=== PATIENT | male | born 1950 | race Caucasian/White ===

== ENCOUNTER 2017-01-20 20:36 | Emergency (ER) | payer BC ==
[2017-01-20] MEDS ORDERED: KETOROLAC 30 MG/ML VIAL IVP ONE (20:47)
[2017-01-20] MEDS ORDERED: ONDANSETRON HCL IV 4 MG/2 ML VIAL IV ONE (20:47)
[2017-01-20] MEDS ORDERED: 0.9 % SODIUM CHLORIDE 1,000 ML BAG IV ONE (20:47)
[2017-01-20 20:48] LABS: URINE APPEARANCE CLEAR; URINE BILIRUBIN NEGATIVE (NEGATIVE); URINE BLOOD TRACE-I (NEGATIVE); URINE COLOR YELLOW; URINE GLUCOSE (UA) NEGATIVE (NEGATIVE); URINE KETONE NEGATIVE (NEGATIVE); URINE LEUKOCYTE ESTERASE NEGATIVE (NEGATIVE); URINE NITRITE NEGATIVE (NEGATIVE); URINE PROTEIN NEGATIVE (NEGATIVE); URINE UROBILINOGEN 0.2 E.U./dL (0.20 - 1.00)
--- NOTE | 2017-01-20 20:49 | Emergency Department Record ---
History of Present Illness - General Chief complaint: Flank Pain Stated complaint: left back pain Time Seen by Provider: 01/20/17 20:46 - Related Data Home Medications Medication Instructions Recorded Confirmed Last Taken Triamterene/Hydrochlorothiazid 1 tab PO DAILY 07/18/14 01/20/17 Unknown [Triamterene-Hctz 37.5-25 mg Cp] Enalapril Maleate [Enalapril 20 mg PO DAILY 01/20/17 01/20/17 Unknown Maleate] Previous Rx's Medication Instructions Recorded Tamsulosin HCl [Flomax] 0.4 mg PO DAILY #7 cap.er.24h 07/18/14 Hydrocodone/Acetaminophen [[place] 1 each PO Q6HR #20 tablet 01/20/17 5-325 Tablet] Allergies Allergy/AdvReac Type Severity Reaction Status Date / Time No Known Drug Allergies Allergy Verified 07/18/14 17:53 Past Medical History - SOCIAL HISTORY Smoking Status: Never smoker - RESPIRATORY Hx Respiratory Disorders: No - CARDIOVASCULAR Hx Cardio Disorders: No - NEURO Hx Neuro Disorders: No - GI Hx GI Disorders: No - Hx Genitourinary Disorders: Yes Hx Kidney Stones: Yes - ENDOCRINE Hx Endocrine Disorders: No - MUSCULOSKELETAL Hx Musculoskeletal Disorders: No - PSYCH Hx Psych Problems: No - HEMATOLOGY/ONCOLOGY Hx Hematology/Oncology Disorders: No Physical Exam - General General Appearance: Alert, Oriented x3, Cooperative, No acute distress - Head Head exam: Normal inspection - Eye Eye exam: Normal appearance, PERRL Pupils: Normal accommodation - ENT ENT exam: Normal exam, Mucous membranes moist, Normal external ear exam, Normal orophraynx, TM's normal bilaterally Ear exam: Normal external inspection. negative: External canal tenderness Nasal Exam: Normal inspection. negative: Discharge, Sinus tenderness Mouth exam: Normal external inspection, Tongue normal Teeth exam: Normal inspection. negative: Dental caries Throat exam: Normal inspection. negative: Tonsillar erythema, Tonsillar exudate - Neck Neck exam: Normal inspection, Full ROM. negative: Tenderness - Respiratory Respiratory exam: Normal lung sounds bilaterally. negative: Respiratory distress - Cardiovascular Cardiovascular Exam: Regular rate, Normal rhythm, Normal heart sounds - GI/Abdominal GI/Abdominal exam: Soft, Normal bowel sounds. negative: Tenderness - Rectal Rectal exam: Deferred - exam: Deferred - Extremities Extremities exam: Normal inspection, Full ROM, Normal capillary refill. negative: Tenderness - Back Back exam: Reports: Normal inspection, CVA tenderness (L), Full ROM. Denies: Muscle spasm, Rash noted, Tenderness - Neurological Neurological exam: Alert, Normal gait, Oriented X3, Reflexes normal - Psychiatric Psychiatric exam: Normal affect, Normal mood - Skin Skin exam: Dry, Intact, Normal color, Warm Course - Reevaluation(s) Reevaluation #1: Patient's nausea is resolved, and his pain is "way down" from when he came in. He states he has seen Dr. South urology but he may have retired. He is asking for 3 days off his work shifts. 01/20/17 21:30 Reevaluation #2: Patient takes flomax daily and has already taken his for today. 01/20/17 21:39 Medical Decision Making - Management Options MDM Management: Additional Work-up Planned (e.g. ADM/Transfer/OP Study) ( urology follow up in office.) - Data Complexity MDM Data: Labs Ordered and/or Reviewed, X-Ray Ordered and/or Reviewed (3.7 mm left ureteral stone 2 cm above UVJ causing mild hydronephrosis per radiologist.) - Lab Data Result diagrams: 01/20/17 20:45 01/20/17 20:45 Disposition Disposition: Discharge Clinical Impression: Kidney stone on left side Disposition: Home, Self-Care Condition: (2) Stable Instructions: Flank Pain (ED), Kidney Stones (ED), How to Strain Your Urine (ED ) Additional Instructions: Flomax once daily as previously directed. [place] as directed if needed for pain. May cause drowsiness. [facility] consult Dr Sanchez as instructed. strain all urine. Off work 01-20 through 01-22-17. Prescriptions: Hydrocodone/Acetaminophen [[place] 5-325 Tablet] 1 each PO Q6HR #20 tablet Referrals: MINDA SANCHEZ M.D. [MEDICAL DOCTOR] -
[2017-01-20 21:01] LABS: URINE MUCUS LIGHT; URINE WBC 0 - 2 (0-2/hpf)
[2017-01-20 21:10] LABS: BASO % 0.4 % (0-6); EOS % 1.8 % (0-6); HEMATOCRIT 45.2 % (42.0-52.0); HEMOGLOBIN 15.7 gm/dl (14.0-18.0); LYMPH % 24.2 % (16-45); MEAN CELL VOLUME 90.6 fl (81-97); MEAN CORPUSCULAR HEMOGLOBIN 31.5 pg (27-33); MEAN CORPUSCULAR HGB CONC 34.7 g/dl (32-36); MEAN PLATELET VOLUME 10.9 fl (7.4-10.4); MONO % 8.6 % (0-9); PLATELET COUNT 215 K/uL (130-400); RED BLOOD COUNT 4.99 M/uL (4.40-5.70); RED CELL DISTRIBUTION WIDTH 13.8 % (11.5-14.5); WHITE BLOOD COUNT W/O DIFF 8.5 K/uL (4.2-12.2)
[2017-01-20 21:15] LABS: ANION GAP 11.5 (7-16); BLOOD UREA NITROGEN 26 mg/dL (9-20); CARBON DIOXIDE 23.5 mmol/L (22-30); CREATININE 1.2 mg/dL (0.66-1.25); EST GLOMERULAR FILTRATION RATE > 60 ml/min; GLUCOSE,RANDOM 123 mg/dL (70-110); LIPASE 24 U/L (23-300)
[2017-01-20] MEDS ORDERED: TAMSULOSIN HCL 0.4 MG CAP.ER.24H PO ONE (21:31)
[2017-01-20] MEDS ORDERED: HYDROCODONE/APAP 5/325MG TABLET PO ONE (21:31)
--- NOTE | 2017-01-22 14:34 | CT SCAN REPORT ---
EXAM: CT SCAN ABDOMEN/PELVIS WO CONTRAST HISTORY: LEFT FLANK PAIN. TECHNIQUE: CT of the abdomen and pelvis is performed without intravenous or oral contrast. COMPARISON: 07/18/14. FINDINGS: There are bilateral nonobstructing intrarenal calculi. At least three or four nonobstructing intrarenal calculi are seen on the right, the largest about 3 mm in size. At least four or five nonobstructing renal calculi are seen on the left. Additionally, there is a 3.7 mm calculus in the distal left ureter causing mild left hydronephrosis. This is located approximately 1.5 cm above the left ureterovesical junction. No other ureteral calculi are seen. The unenhanced kidneys otherwise are unremarkable. Lung bases are unremarkable. There is diffuse fatty infiltration of the liver with no focal liver lesion seen. The spleen is unremarkable. No pancreatic mass or inflammatory change. The bile ducts are not dilated. There are calcified gallstones in the gallbladder, which is otherwise unremarkable. No adrenal lesion seen. There is no aortic aneurysm. No paraaortic mass or adenopathy. There are no dilated bowel loops. The appendix is unremarkable. There is diverticulosis without CT evidence for diverticulitis. No pelvis mass, abscess, or adenopathy. There is no free air or free fluid. There are arthritic changes in the SI joints and lower lumbar spine. IMPRESSION: 1. A 3.7 MM CALCULUS IN THE DISTAL LEFT URETER CAUSING MILD LEFT HYDRONEPHROSIS. 2. THERE ARE BILATERAL NONOBSTRUCTING INTRARENAL CALCULI. 3. CHOLELITHIASIS. 4. DIFFUSE FATTY INFILTRATION OF THE LIVER. 5. DIVERTICULOSIS WITHOUT CT EVIDENCE FOR DIVERTICULITIS. JOB NUMBER: [id number] [facility]
== END 2017-01-20 22:06 | disposition home or self-care (01) ==
LOC: ER 20:36
DX: N13.2 Hydronephrosis with renal and ureteral calculous obstruction (principal); Z87.442 Personal history of urinary calculi
CPT/HCPCS: 99284; 96374; 96375; 99283; 83690; 85025; 80048; 81001; 74176; J1885; J2405; J7030

== ENCOUNTER 2017-03-15 22:09 | Emergency (ER) | payer BC ==
[2017-03-15] MEDS ORDERED: KETOROLAC 30 MG/ML VIAL IVP ONE (22:38)
[2017-03-15] MEDS ORDERED: 0.9 % SODIUM CHLORIDE 1,000 ML BAG IV ONE (22:38)
[2017-03-15] MEDS ORDERED: ONDANSETRON HCL IV 4 MG/2 ML VIAL IV ONE (22:38)
--- NOTE | 2017-03-15 22:41 | Emergency Department Record ---
History of Present Illness - General Chief complaint: Flank Pain Stated complaint: GROIN & BACK PAIN Time Seen by Provider: 03/15/17 22:34 Source: Patient Mode of Arrival: Ambulatory Limitations: No limitations - History of Present Illness Initial comments: The patient is here due to a 5 hour hx of L flank and groin pain. It is a sharp stabbing pain associated with nausea and vomiting. The patient has a long hx of kidney stones just like this. He did have a lithotrypsy done last month due to kidney stones also. The patient is having dysuria and urinary urgency. MD Complaint: Other Onset/Timin -: Hour(s) Location: Left flank Radiation: Other Severity scale (1-10): 10 Consistency: Constant Improves with: Medication Worsens with: Urination Reports: Nausea/vomiting - Related Data Previous Rx's Medication Instructions Recorded Tamsulosin HCl [Flomax] 0.4 mg PO DAILY #7 cap.er.24h 07/18/14 Hydrocodone/Acetaminophen [[place] 1 each PO Q6HR #20 tablet 01/20/17 5-325 Tablet] Hydrocodone/Acetaminophen [[place] 1 - 2 each PO QID #20 tablet 03/16/17 5-325 Tablet] Allergies Allergy/AdvReac Type Severity Reaction Status Date / Time No Known Drug Allergies Allergy Verified 07/18/14 17:53 Travel Screening - Travel/Exposure Within Last 30 Days Have you traveled within the last 30 days?: No - Travel Symptoms Symptom Screening: None Review of Systems Constitutional: Denies: Chills, Fever Eyes: Denies: Eye discharge ENT: Denies: Congestion Respiratory: Denies: Cough, Dyspnea Past Medical History - SOCIAL HISTORY Smoking Status: Never smoker - RESPIRATORY Hx Respiratory Disorders: No - CARDIOVASCULAR Hx Cardio Disorders: Yes Hx Hypertension: Yes - NEURO Hx Neuro Disorders: No - GI Hx GI Disorders: No - Hx Genitourinary Disorders: Yes Hx Kidney Stones: Yes - ENDOCRINE Hx Endocrine Disorders: No - MUSCULOSKELETAL Hx Musculoskeletal Disorders: No - PSYCH Hx Psych Problems: No - HEMATOLOGY/ONCOLOGY Hx Hematology/Oncology Disorders: No Family Medical History Any Significant Family History?: Yes Hx Heart Disease: Father Physical Exam - General General Appearance: Alert, Oriented x3, Cooperative, No acute distress - Head Head exam: Atraumatic, Normocephalic, Normal inspection - Eye Eye exam: Normal appearance, PERRL - Neck Neck exam: Normal inspection, Full ROM. negative: Tenderness - Respiratory Respiratory exam: Normal lung sounds bilaterally. negative: Respiratory distress - Cardiovascular Cardiovascular Exam: Regular rate, Normal rhythm, Normal heart sounds - GI/Abdominal GI/Abdominal exam: Soft, Normal bowel sounds, Tenderness (There is mild tenderness to the LUQ.). negative: Distended, Guarding, Rebound, Rigid - Extremities Extremities exam: Normal inspection, Full ROM, Normal capillary refill. negative: Tenderness - Neurological Neurological exam: Alert, Normal gait. negative: Abnormal gait, Motor sensory deficit Course Vital Signs 03/15/17 22:34 Temperature 97.9 F Pulse Rate [ 63 Pulse Ox Probe] Respiratory 22 Rate Blood Pressure 150/92 [Left Arm] Pulse Ox 97 - Reevaluation(s) Reevaluation #1: The patient is doing a lot better at this time. His pain is controlled and he is resting comfortably. 03/15/17 23:48 Reevaluation #2: The patient is doing a lot better at this time. I did discuss the CT results with the patient and the need for F/U. He is to see Dr. Marisol BRAVO and is to return to the ER for any increasing pain, fever, or vomiting. 03/16/17 00:01 Medical Decision Making - Data Complexity MDM Data: Labs Ordered and/or Reviewed, X-Ray Ordered and/or Reviewed - Lab Data Result diagrams: 03/15/17 22:23 03/15/17 22:23 - Radiology Data Radiology results: Report reviewed (CT: 7 mm stone L UVJ resulting in Left Moderate hydro. ) Disposition Disposition: Discharge Clinical Impression: Ureteric colic Disposition: Home, Self-Care Condition: (1) Good Instructions: Flank Pain (ED) Additional Instructions: Please drink plenty of fluids and take the [place] for pain. Continue your regular medicines. Please see Dr. Marisol BRAVO and call tomorrow for an appointment. Please return to the ER for any increased pain, fever, or vomiting. Prescriptions: Hydrocodone/Acetaminophen [[place] 5-325 Tablet] 1 - 2 each PO QID #20 tablet Referrals: MINDA SANCHEZ M.D. [MEDICAL DOCTOR] - Forms: Patient Portal Access Time of Disposition: 00:06 Quality - Quality Measures Quality Measures: N/A - Blood Pressure Screening View Details: Yes Does Patient Have Any of the Following: No Blood Pressure Classification: Pre-Hypertensive BP Reading Systolic Measurement: 138 Diastolic Measurement: 74 Screening for High Blood Pressure: < Pre-Hypertensive BP, F/U Documented > [ [id number]] Pre-Hypertensive Follow-up Interventions: Referral to alternative/primary care provider.
[2017-03-15 22:42] LABS: URINE APPEARANCE CLEAR; URINE BILIRUBIN NEGATIVE (NEGATIVE); URINE BLOOD TRACE-I (NEGATIVE); URINE COLOR YELLOW; URINE GLUCOSE (UA) NEGATIVE (NEGATIVE); URINE KETONE TRACE (NEGATIVE); URINE LEUKOCYTE ESTERASE NEGATIVE (NEGATIVE); URINE NITRITE NEGATIVE (NEGATIVE); URINE PROTEIN NEGATIVE (NEGATIVE); URINE UROBILINOGEN 0.2 E.U./dL (0.20 - 1.00)
[2017-03-15 22:50] LABS: BASO % 0.1 % (0-6); EOS % 0.3 % (0-6); HEMATOCRIT 44.7 % (42.0-52.0); HEMOGLOBIN 15.3 gm/dl (14.0-18.0); LYMPH % 7.6 % (16-45); MEAN CELL VOLUME 90.1 fl (81-97); MEAN CORPUSCULAR HEMOGLOBIN 30.8 pg (27-33); MEAN CORPUSCULAR HGB CONC 34.2 g/dl (32-36); MONO % 2.7 % (0-9); PLATELET COUNT 208 K/uL (130-400); RED BLOOD COUNT 4.96 M/uL (4.40-5.70); RED CELL DISTRIBUTION WIDTH 13.3 % (11.5-14.5); WHITE BLOOD COUNT W/O DIFF 9.7 K/uL (4.2-12.2)
[2017-03-15 22:58] LABS: URINE EPITHELIAL CELLS 0 - 2 (FEW); URINE WBC 0 - 2 (0-2/hpf)
[2017-03-15 23:00] LABS: ANION GAP 11.3 (7-16); BLOOD UREA NITROGEN 33 mg/dL (9-20); CARBON DIOXIDE 21.7 mmol/L (22-30); CREATININE 1.1 mg/dL (0.66-1.25); EST GLOMERULAR FILTRATION RATE > 60 ml/min; GLUCOSE,RANDOM 114 mg/dL (70-110)
--- NOTE | 2017-03-17 01:27 | CT SCAN REPORT ---
EXAM: CT SCAN ABDOMEN/PELVIS WO CONTRAST HISTORY: LEFT FLANK PAIN. PREVIOUS HISTORY OF KIDNEY STONES AND PRIOR LITHOTRIPSY. TECHNIQUE: Standard CT imaging of the abdomen and pelvis was performed in the axial plane without contrast. Additional coronal and sagittal reformatted images were also performed. COMPARISON: 01/20/17. FINDINGS: There is mild dependent atelectasis at both lung bases. The heart is mildly enlarged. There is fatty infiltration of the liver. No focal hepatic abnormalities are identified. Calcified stones are present within the gallbladder. There is no biliary ductal dilatation. The pancreas, spleen, and adrenal glands are normal. The stomach and epigastrium are unremarkable. A 7 mm calculus is present within the left UVJ and results in moderate hydronephrosis. Multiple additional nonobstructing stones are present within the left kidney. The largest is located at the inferior pole and measures 8 mm. There are several small stones as well within the right kidney, all of which are nonobstructing. The largest measures 4 mm in maximal dimension. There is no right hydronephrosis. Mild atherosclerotic calcifications are present within the aorta with no aneurysm. There are scattered nonenlarged retroperitoneal and mesenteric lymph nodes. There is no pathologic lymphadenopathy. There are scattered diverticula throughout the colon and greatest within the sigmoid region. There is no evidence for acute diverticulitis. The remaining bowel and mesentery are normal. There is no pneumoperitoneum or ascites. The urinary bladder is normal. The prostate gland is enlarged. Degenerative changes are present within the spine. No osteoblastic or osteolytic process is identified. IMPRESSION: 1. A 7 MM CALCULUS WITHIN THE LEFT URETEROVESICAL JUNCTION RESULTING IN MODERATE HYDRONEPHROSIS. 2. NONOBSTRUCTING INTRARENAL CALCULI BILATERALLY. 3. CHOLELITHIASIS WITH NO EVIDENCE FOR ACUTE CHOLECYSTITIS. 4. COLONIC DIVERTICULOSIS WITH NO DIVERTICULITIS. 5. ENLARGED PROSTATE GLAND. 6. FATTY INFILTRATION OF THE LIVER. J[facility]BER: [id number] [facility]
== END 2017-03-16 00:22 | disposition home or self-care (01) ==
LOC: ER 22:09
DX: N13.2 Hydronephrosis with renal and ureteral calculous obstruction (principal); R11.2 Nausea with vomiting, unspecified; R30.0 Dysuria; Z87.442 Personal history of urinary calculi
CPT/HCPCS: 74176; 80048; 81001; 85027; 96361; 96374; 96375; 99284; J1885; J2405; J7030